=== PATIENT | male | born 1935 | race Caucasian/White ===

== ENCOUNTER → 2024-01-14 09:07 | Outpatient (REF) | payer OTHER, SELFPAY | LOC: HWRCS 09:07 | PROVIDERS: ATTENDING PHYSICIAN Internal Medicine; FAMILY PHYSICIAN Internal Medicine | DX: I35.0 Nonrheumatic aortic (valve) stenosis (principal) | CPT/HCPCS: 93306 ==

== ENCOUNTER → 2024-07-05 09:04 | Outpatient (REF) | payer OTHER, SELFPAY | LOC: HWRCS 09:04 | PROVIDERS: ATTENDING PHYSICIAN Internal Medicine; FAMILY PHYSICIAN Internal Medicine | DX: I35.0 Nonrheumatic aortic (valve) stenosis (principal); I25.10 Atherosclerotic heart disease of native coronary artery without angina pectoris; I48.0 Paroxysmal atrial fibrillation; I50.32 Chronic diastolic (congestive) heart failure; R09.89 Other specified symptoms and signs involving the circulatory and respiratory systems | CPT/HCPCS: 93306 ==

== ENCOUNTER 2024-07-18 07:34 | Day surgery (SDC) | payer OTHER, SELFPAY ==
[2024-07-18] VITALS (14 sets, daily range): BP systolic 151–205; BP diastolic 27–77; BMI 23.6
[2024-07-18 08:22] LABS: Glucose - Point of Care 136 mg/dl (70-99)
[2024-07-18] MEDS: NSS 211 ML IV (08:45)
[2024-07-18] MEDS: LOW STRENGTH ASPIRIN 81 MG PO (08:46)
--- NOTE | 2024-07-18 11:15 | ITS.CL.CATH ---
Transitional Living Specialist - Catheterization
Cardiac Catheterization
Procedure Report:
CARDIAC CATHETERIZATION REPORT
Date of Procedure: 07/18/2024
Referring: Tamir Albarado M.D.
Indication: Known coronary artery disease, critical aortic valve stenosis.
PROCEDURE:
1. Right heart catheterization.
2. Coronary angiography.
A total of 19 minutes of procedural/moderate sedation was utilized. An independent electromedical equipment repairer was present to assist with and help manage the patient's level of consciousness and physiologic status.
ACCESS:
1. 6 Belarusian right common femoral artery using a modified Seldinger technique with a micropuncture kit under ultrasound guidance. Ultrasound image obtained.
2. 5 [place]ian right common femoral vein using a modified Seldinger technique with a micropuncture kit under ultrasound guidance. Ultrasound image obtained.
CATHETERS:
1. 5 [place]ian balloon.
2. 5 Belarusian JL 4.
3. 5 [place]ian JR4.
HEMODYNAMIC DATA
Weight (kg): 70.3
AO (s/d/x, mmHg): 201/72/134
LV (s/x, mmHg): Not obtained.
PCWP (a/v/x, mmHg): /
PA (s/d/x, mmHg): 35//
RV (s/x, mmHg): 36/9
RA (a/v/x, mmHg): 13/
SVC SvO2 (%): 67.0
IVC SvO2 (%): Not obtained.
RA SvO2 (%): Not obtained.
RV SvO2 (%): Not obtained.
PA SvO2 (%): 68.6
SaO2 (%): 96.1
Hbg (g/dL): 13.0
ROBERT
CO (L/min): 4.22
CI (L/min/m2): 2.30
Thermodilution
CO (L/min): Not performed.
CI (L/min/m2): Not performed.
TPG (mmHg): 8
PVR (Carmen Units): 1.90
SVR (dynes*seconds*cm^-5): 2370
AVO2 Diff (Volume %): 4.86
AV gradient (x, mmHg): Not obtained.
AV area (cm2): Not obtained.
MV gradient (x, mmHg): Not obtained.
MV area (cm2): Not obtained.
LEFT VENTRICULOGRAPHY: Not performed.
AORTOGRAPHY: Not performed.
CORONARY ANGIOGRAPHY
Dominance: Right.
Left Main: Normal size, bifurcating vessel. There is no coronary artery disease.
LAD: Normal size vessel giving rise to 2 notable diagonals. There is a patent stent in the distal LAD. There are luminal irregularities elsewhere.
Ramus: Congenitally absent.
Circumflex: Normal size, nondominant vessel giving rise to 2 small obtuse marginals. There are minor luminal irregularities. OM 2 is the larger of the obtuse marginals but is severely tortuous.
RCA: Large size, dominant vessel with a large posterolateral branch. There is a densely calcified, 70% lesion in the proximal RCA as the vessel turns caudal. There is a 50% lesion in the distal RCA, proximal to the origin of the RPDA.
INTERVENTIONS
None.
Closure Device: Manual pressure for the right common femoral artery and vein.
Radiation dose (mGy): 308.6
DAP (cm2.Gy): 26.1350
Fluoroscopy time (minutes): 5.6
CONCLUSIONS:
1. Right dominant circulation with a patent stent in the distal LAD, a 70% lesion in the proximal RCA and a 50% lesion in the distal RCA.
2. Normal filling pressures (PCWP = 15 mmHg at 70.3 kg).
3. Severely elevated systemic vascular resistance (2370 dynes seconds centimeters to the negative fifth).
4. Critical aortic valve stenosis by echocardiography.
RECOMMENDATIONS:
1. Expectant management after cardiac catheterization via right common femoral approach.
2. Limited weight bearing for one week.
3. TAVR evaluation.
4. Aggressive secondary prevention with high-dose, high potency statin.
5. Given absence of anginal symptoms, no role for pre-TAVR PCI.
Copy to: Tamir Albarado M.D., Wilian Noble M.D.
Quan Gallo DO, FACC, FACP
[2024-07-18] MEDS: TOPROL XL 25 MG PO (12:39)
[2024-07-18] MEDS: NSS 318 IV (12:40)
--- NOTE | 2024-07-18 13:09 | CONSULT.STRU ---
Consultation
-
Date/Time Consultation Requested: 07/18/2024
Date/Time Consultation Performed: 07/18/2024
Requesting Provider: Quan Gallo
Performing Provider: LIEN Leong
Reason for Consultation: Aortic stenosis/ TAVR evaluation
Patient History
Physicians
Family Physician: Wilian Noble
Outpatient Chamber Worker: Tamir Albarado
Primary Chamber Worker: Tamir Albarado
History of Present Illness
Sylvester Lora is an 88-year-old male (recently retired self-employed HVAC Contractor/Bank Teller) with coronary artery disease status-post overlapping mid LAD stents (07/28/14; typical anginal symptoms), paroxysmal atrial fibrillation (on Eliquis),
severe aortic stenosis, mildly labile hypertension(lisinopril recently increased), hyperlipidemia, diabetes, and spinal stenosis presenting for cardiac cath today as part pf his evaluation prior to aortic valve replacement. Sylvester has been
relatively stable from a cardiac standpoint. However, he recently underwent an echocardiogram which revealed significantly progressive aortic stenosis, now severe with very elevated gradients. PG/M/63, SOUMYA: 0.85, Trace AI, Mild to moderate MR
and dilated aortic root. Sylvester remains primarily asymptomatic and continues to state that he feels well overall. He has been going to the gym daily using hand exercise machines as well as leg machines. He denies chest pain, shortness of breath,
palpitations, near-syncope/syncope, fatigue, orthopnea or progressive lower extremity swelling.
Reviewed the pathophysiology of aortic stenosis with the patient and his daughter. Explained the treatment options of SAVR and TAVR. Explained the TAVR evaluation process including follow up BMP, CT TAVR scan, CT surgery consult and Heart Team
discussion. Provided with script for BMP next week, script and appointment for CT TAVR, Consult appointment with Dr. Franks and a copy of the TAVR education booklet with contact information. Allowed for and answered questions.
Past Medical History
Past Medical History: Atrial Fib (on eliquis, ChadsVasc:6), CAD (h/o LAD stents 2014), Cancer (prostate), HTN, Hypercholesterolemia, NIDDM, Valvular Disease (Severe , trace AI, mild to moderate MR) and Other (h/o peptic ulcer disease 1998, spinal
stenosis)
Past Surgical History
Past Surgical History: PCI/Stent (2015- overlapping mid lad stents) and Other (Prostatectomy, right and left hernia repairs, cataract surgery, spinal epidurals)
Dental History
Regular dental care- Dentist at [facility]
Family History
Mother: at Age (80yo)
Father: at Age (54yo)
Social History
Alcohol: None
Drug: None
Tobacco: Non-Smoker
Personal:
Living: With Spouse
Employment: Retired (HVAC/power plant electrician)
Allergies
Allergy/AdvReac Type Severity Reaction Status Date / Time
No Known Allergies Allergy Verified 07/18/24 09:10
Home Medications
�Medication �Instructions �Recorded �Confirmed �Type
glucosamine HCl 1,500 mg tablet 1,500 mg PO DAILY Supplement 07/28/14 07/18/24 History
allopurinol 300 mg tablet 300 mg PO DAILY Gout 10/09/20 07/18/24 History
acetaminophen 325 mg tablet 650 mg PO Q6H PRN mild pain 01/01/22 07/18/24 History
(Tylenol)
aspirin 81 mg tablet,delayed 81 mg PO DAILY Blood clot 01/01/22 07/18/24 History
release prevention/tx
omega 2-xpb-rwv-fish oil 1,000 mg 1 cap PO DAILY Supplement 01/01/22 07/18/24 History
(120 mg-180 mg) capsule (Fish Oil)
therapeutic multivitamin 1 tab PO DAILY Supplement 01/01/22 07/18/24 History
apixaban 5 mg tablet (Eliquis) 5 mg PO BID Blood clot 01/04/22 07/18/24 Rx
prevention/tx #60 tabs
atorvastatin 40 mg tablet 40 mg PO QPM High cholesterol #90 01/04/22 07/18/24 Rx
tabs
metoprolol succinate 25 mg 25 mg PO DAILY Blood pressure #0 01/04/22 07/18/24 Rx
tablet,extended release 24 hr tabs
digoxin 125 mcg (0.125 mg) tablet 125 mcg PO NOON 07/18/24 07/18/24 History
empagliflozin 25 mg tablet 12.5 mg PO QPM 07/18/24 07/18/24 History
(Jardiance)
furosemide 20 mg tablet 20 mg PO Q48H Fluid 07/18/24 07/18/24 History
retention/Swelling
lisinopril 10 mg tablet 10 mg PO QPM 07/18/24 07/18/24 History
polyethylene glycol 3350 17 17 g PO DAILY 07/18/24 07/18/24 History
gram/dose oral powder
potassium chloride 20 mEq 20 meq PO DAILY 07/18/24 07/18/24 History
tablet,extended release
STS%
STS %: 4.99%
Review of Systems
-
History Source: Patient
General: Reports Weight Loss (recently lost 5lbs) and Fatigue (decreased energy since diagnosed with a-fib in 2021)
HEENT: Reports No Symptoms; Denies Visual Changes or Dysphagia
Respiratory: Reports No Symptoms; Denies SOB, GUZMAN, Cough, Asthma or PND
Cardiac: Reports Edema (mild edema bilateral ankles); Denies Chest Pain, Known Vascular Disease, Palpitations, Nausea or Vomiting
Abdomen/GI: Reports Ulcers (remote history of peptic ulcer); Denies Reflux, Nausea, Vomiting, Diarrhea or Constipation
: Reports No Symptoms; Denies Dysuria, Incontinence, Urgency or Hematuria
Musculoskeletal: Reports Other (spinal stenosis- epidurals)
Skin: Reports No Symptoms
Neurological: Reports No Symptoms; Denies CVA, TIA, Headaches, Syncope or Dizzy
Vascular: Reports No Symptoms; Denies Claudication
Physical Exam
Vital Signs
Temp 97.6 F 07/18/24 08:32
Temp route: Temporal 07/18/24 08:32
Pulse 64 07/18/24 12:45
Resp Rate 19 07/18/24 12:45
Blood pressure 179/50 07/18/24 12:39
Blood pressure extremity used: Right upper arm 07/18/24 11:39
Position: Lying 07/18/24 11:39
MAP (cuff-Elda Monitor) 72 07/18/24 12:30
SaO2 100 07/18/24 12:45
Oxygen Mode of Delivery Room air 07/18/24 12:54
Can the patient verbally communicate their pain? Yes 07/18/24 12:54
Actual Weight 70.398 kg 07/18/24 07:06
Body Mass Index (BMI) 23.6 07/18/24 07:06
Labs
07/12/2024:
H/H12.9/38.5
WBC: 11.2
Platelets: [id number]
BUN/Creat: 34/0.87
GFR: 54
Diagnostic Studies
07/05/2024 Echocardiogram:
CONCLUSIONS
Normal biventricular size and systolic function without regional wall motion
abnormality. LVEF 65-70%.
Moderate concentric left ventricular hypertrophy.
Very severe aortic stenosis (peak/mean 108/63 mmHg, SOUMYA 0.85 cm2).
Trace aortic regurgitation.
Mild to moderate mitral regurgitation.
Dilated aortic root and ascending aorta (SOV 4.0 cm, Asc Ao 3.8 cm).
Compared to prior echocardiogram in January 2024, aortic valve gradients have
increased previously peak/mean 70/46 mmHg). Aortic valve area is stable
(previously 0.9 cm2).
Indications:
Rhythm: Sinus
Portable Study: No
Technical Quality: Good
Contrast: None
BP: 118 / 76
PROCEDURE
A complete Transthoracic Echocardiogram was performed utilizing two-dimensional
evaluation with color flow and spectral Doppler analysis.
FINDINGS
Left Ventricle
Normal left ventricular chamber size. Moderate concentric left ventricular
hypertrophy. Vigorous left ventricular systolic function. Normal regional wall
motion. Estimated left ventricular ejection fraction is 65-70% by Stevenson's
method of discs. Diastolic function indeterminate.
Right Ventricle
Normal right ventricular size and function.
Left Atrium
Indexed LA volume is mildly abnormal (35-41 mL/m2).
Right Atrium
Normal right atrium.
Mitral Valve
Thickened mitral valve leaflets. Mitral annular calcification. Mild mitral
stenosis with a mean gradient of 4 mmHg. Mild to moderate mitral regurgitation.
Aortic Valve
Heavily calcified, trileaflet aortic valve. Severe aortic stenosis. The peak
gradient across the valve is 108 mmHg with a mean of 63 mmHg. Using a LVOT
diameter of 2.0 cm, the SOUMYA is 0.85 cm sq. Trace aortic regurgitation.
Tricuspid Valve
Tricuspid valve opens normally. Trace tricuspid regurgitation. Estimated
pulmonary artery pressure of 29 mmHg assuming a right atrial pressure of 3
mmHg.
Pulmonic Valve
Structurally normal pulmonic valve. Trace pulmonic regurgitation.
Pericardium\\Pleura
Normal pericardium without effusion.
Aorta
Dilated aortic root and ascending aorta. (SOV 4.0 cm, Asc Ao 3.8 cm).
Other Finding
The IVC is of normal size and demonstrates normal respiratory variation.
Interatrial septum is intact with no evidence of shunting by color flow
Doppler.
07/18/2024 Cardiac Cath:
HEMODYNAMIC DATA
Weight (kg):70.3
AO (s/d/x, mmHg): 201/72/134
LV (s/x, mmHg): Not obtained.
PCWP (a/v/x, mmHg):
PA (s/d/x, mmHg):
RV (s/x, mmHg): 36/9
RA (a/v/x, mmHg):
SVC SvO2 (%):67.0
IVC SvO2 (%):Not obtained.
RA SvO2 (%):Not obtained.
RV SvO2 (%):Not obtained.
PA SvO2 (%):68.6
SaO2 (%):96.1
Hbg (g/dL):13.0
ROBERT
CO (L/min): 4.22
CI (L/min/m2): 2.30
Thermodilution
CO (L/min):Not performed.
CI (L/min/m2):Not performed.
TPG (mmHg): 8
PVR (Carmen Units): 1.90
SVR (dynes*seconds*cm^-5): 2370
AVO2 Diff (Volume %): 4.86
AV gradient (x, mmHg):Not obtained.
AV area (cm2):Not obtained.
MV gradient (x, mmHg):Not obtained.
MV area (cm2):Not obtained.
CORONARY ANGIOGRAPHY
Dominance: Right.
Left Main: Normal size, bifurcating vessel. There is no coronary artery disease.
LAD: Normal size vessel giving rise to 2 notable diagonals. There is a patent stent in the distal LAD. There are luminal irregularities elsewhere.
Ramus:Congenitally absent.
Circumflex: Normal size, nondominant vessel giving rise to 2 small obtuse marginals. There are minor luminal irregularities. OM 2 is the larger of the obtuse marginals but is severely tortuous.
RCA: Large size, dominant vessel with a large posterolateral branch. There is a densely calcified, 70% lesion in the proximal RCA as the vessel turns caudal. There is a 50% lesion in the distal RCA, proximal to the origin of the RPDA.
CONCLUSIONS:
1. Right dominant circulation with a patent stent in the distal LAD, a 70% lesion in the proximal RCA and a 50% lesion in the distal RCA.
2. Normal filling pressures (PCWP = 15 mmHg at 70.3 kg).
3. Severely elevated systemic vascular resistance (2370 dynes seconds centimeters to the negative fifth).
4. Critical aortic valve stenosis by echocardiography.
RECOMMENDATIONS:
1. Expectant management after cardiac catheterization via right common femoral approach.
2. Limited weight bearing for one week.
3. TAVR evaluation.
4. Aggressive secondary prevention with high-dose, high potency statin.
5. Given absence of anginal symptoms, no role for pre-TAVR PCI.
Exam
General: Well Developed, Well Nourished and No Apparent Distress
HEENT: Normocephalic, Moist Mucous Membranes, PERRLA and EOMI
Neck: Trachea Midline
Respiratory: Clear; Negative Wheezes, Crackles or Rhonchi
Cardiac: S1/S2, Regular Rhythm and Murmur (Grade III/ GERRY)
GI: Soft, Non Tender, Non Distended and Normal Bowel Sounds
Rectal: Deferred by Provider
Skin: Warm and Dry
Neuro: AO x 3 and Nonfocal/Grossly Intact
Extremities: Pulses (biphasic doppler pedal pulses); Negative Lower Level Edema
Psych: Calm
Assessment / Plan
-
Severe Aortic stenosis:
����������� Continue evaluation for aortic stenosis as outpatient
����������� BMP next week ([facility])
����������� CT TAVR scan 08/02/2024 at
����������� CT surgery consult with Dr. Franks� 08/08/2024
����������� Dental Clearance ([facility])
����������� Heart team discussion at [facility]
Procedure Type:�Isolated AVR
Perioperative Outcome Estimate %
Operative Mortality 4.99%
Morbidity & Mortality 14.1%
Stroke 1.56%
Renal Failure 2.82%
Reoperation 4.85%
Prolonged Ventilation 6.57%
Deep Sternal Wound Infection 0.049%
Long Hospital Stay (>14 days) 9.65%
Short Hospital Stay (<6 days)* 27.6%
Data Reviewed
-
EKG: Report Reviewed by me (Sinus with first degree AV block)
Ice Puller: Report Reviewed by me and Discussed with Physician
Echo: Report Reviewed by me and Discussed with Physician
Labs: Labs Reviewed by me
Old Records: Reviewed (cardiology notes)
Total Time Spent with Patient (in minutes): 30
--- NOTE | 2024-07-18 13:37 | PTCARENOTE ---
Areli mancera np aware of pts bp running 173/44. toprolol ordered and given.
== END 2024-07-18 14:13 | disposition home or self-care (01) ==
LOC: CATH 07:34
PROVIDERS: ATTENDING PHYSICIAN Internal Medicine Cardiovascular Disease; FAMILY PHYSICIAN Internal Medicine; OTHER PHYSICIAN Internal Medicine
DX: I08.0 Rheumatic disorders of both mitral and aortic valves (principal); I25.10 Atherosclerotic heart disease of native coronary artery without angina pectoris; I11.9 Hypertensive heart disease without heart failure; E11.9 Type 2 diabetes mellitus without complications; Z79.84 Long term (current) use of oral hypoglycemic drugs; E78.00 Pure hypercholesterolemia, unspecified; I25.118 Atherosclerotic heart disease of native coronary artery with other forms of angina pectoris; I48.91 Unspecified atrial fibrillation; Z79.01 Long term (current) use of anticoagulants; M48.00 Spinal stenosis, site unspecified; Z87.11 Personal history of peptic ulcer disease; Z90.79 Acquired absence of other genital organ(s); Z95.5 Presence of coronary angioplasty implant and graft
CPT/HCPCS: 99152; 76937; 82962; 93456; C1894; Q9967

== ENCOUNTER → 2024-08-02 08:56 | Outpatient (REF) | payer OTHER, SELFPAY | LOC: RAD 08:56 | PROVIDERS: ATTENDING PHYSICIAN Nurse Practitioner Adult Health | DX: I35.0 Nonrheumatic aortic (valve) stenosis (principal) | CPT/HCPCS: 74174; 75572; Q9967 ==

== ENCOUNTER 2024-08-11 07:28 | Inpatient (IN) | payer OTHER, SELFPAY ==
[2024-08-09 11:49] VITALS: BMI 24.0
[2024-08-09 12:55] LABS: Urine Albumin 2+ (Neg - Trace); Urine Bilirubin Negative (Negative); Urine Character Clear (Clear); Urine Color Yellow; Urine Glucose 4+ (Negative); Urine Ketone Negative (Negative); Urine Leukocyte Negative (Negative); Urine Nitrite Negative (Negative); Urine Occult Blood Negative (Negative); Urine Specific Gravity 1.015 (<1.030); Urine Urobilinogen Negative (Neg - 1+)
[2024-08-09 12:55] LABS: % Basophils 0.4 % (0-2); % Eosinophils 1.9 % (0-6); % Immature Granulocytes 1.4 % (0-0.5); % Lymphocytes 18.4 % (20.5-51.1); % Monocytes 7.8 % (1.7-9.3); % Neutrophils 70.1 % (42.2-75.2); Absolute Eosinophils 0.2 10^3/uL (0-0.7); Absolute Immature Granulocytes 0.1 10^3/uL (0-0.05); Absolute Lymphocytes 1.4 10^3/uL (1.2-3.4); Absolute Monocytes 0.6 10^3/uL (0.1-0.6); Absolute Neutrophils 5.4 10^3/uL (1.4-6.5); Hematocrit 39.4 % (39.0-52.0); Hemoglobin 13.5 g/dL (13.0-18.0); Mean Corp Hgb Conc. 34.3 g/dL (33.0-37.0); Mean Corpuscular Hgb 32.6 pg (27.0-31.0); Mean Corpuscular Volume 95.2 fL (80.0-94.0); Mean Platelet Volume 10.8 fL (7.4-10.4); Nucleated Red Blood Cells % 0 % (-); Platelet Count 164 10^3/uL (130-400); Red Blood Cell Count 4.14 10^6/uL (4.70-6.10); White Blood Cell Count 7.7 10^3/uL (4.8-10.8)
[2024-08-09 13:05] LABS: Urine Red Blood Cell 0-2 /HPF (0-2); Urine Squamous Cell None seen /LPF (Few); Urine White Cell None Seen /HPF (0-5)
[2024-08-09 13:06] LABS: APTT 27.2 Sec (23.4-35.0); INR 1.01; PT 13.7 Sec (11.4-14.6)
[2024-08-09 13:18] LABS: ALT (SGPT) 55 U/L (0-50); AST (SGOT) 37 U/L (17-59); Albumin 4.7 g/dl (3.5-5.0); Alkaline Phosphatase 124 U/L (38-126); Blood Urea Nitrogen 30 mg/dl (9-20); Calcium 9.8 mg/dl (8.4-10.2); Carbon Dioxide 25 mmol/L (22-30); Chloride 103 mmol/L (98-107); Direct Bilirubin 0.2 mg/dl (0.0-0.4); Estimated Creatinine Clearance 61 ml/min; Glucose 144 mg/dl (70-99); Potassium 4.8 mmol/L (3.5-5.1); Sodium 138 mmol/L (135-145); Total Bilirubin 1.3 mg/dl (0.2-1.3); Total Protein 6.6 g/dl (6.3-8.2); eGFR > 60.00
[2024-08-09 13:23] LABS: NT-proBNP 410 pg/ml
--- NOTE | 2024-08-09 14:10 | CM ---
Met with and Mrs. Lora in [facility]'s. He states prior to admission he resides with his spouse in a ground floor apartment at [facility]. He states he has been there for two years. He states prior to admission he ambulates in
the apartment without an assistive device, uses a single point cane for short distances in the community and uses a scooter for long distances in the community. He states he has a single point cane and scooter at home. He states he has a
prescription plan and uses the [facility] for his Jardiance and Eliquis. His spouse states she will be home to assist in his care if needed. Medical work-up in progress. The discharge plan is to return home with his spouse and a home visit by the
Transitional Care Nurse when medically stable.
We reviewed pre-op and post-op routines. We reviewed the shower instructions. He has the soap and written instructions. He already has the TAVR Educational Booklet. We also reviewed restrictions including driving and lifting restrictions. We
discussed a home visit by the Transitional Care Nurse. He is agreeable to a home visit. The plan is for TAVR on , 08/11/24.
[2024-08-09 14:15] LABS: Glycohemoglobin (HgbA1c) 6.8 % (4.0-5.6)
[2024-08-11] VITALS (22 sets, daily range): BP systolic 117–174; BP diastolic 32–74; BMI 22.6
--- NOTE | 2024-08-11 08:46 | CM ---
Reviewed chart. Mr. Lora is in the operating room today. Prior to admission he resides with his spouse in a ground floor apartment at [facility]. He has been there two years. Prior to admission he ambulates with out an
assisted device in the apartment, uses a single point cane for short distances and uses a scooter for long distances. He has a single point cane and scooter at home. He states he has a prescription plan and uses the [employer] [facility] for his Jardiance
and Eliquis. His spouse will be home to assist in his care if needed. Medical work-up in progress. The discharge plan is to return home with his spouse and a home visit by the Transitional Care Nurse when medically stable.
[2024-08-11 08:53] LABS: Glucose - Point of Care 136 mg/dl (70-99)
[2024-08-11] MEDS: ANCEF 10 IV (10:16)
[2024-08-11 11:24] LABS: ACT-LR - POC 229 Seconds (116-155)
[2024-08-11 11:41] LABS: ACT-LR - POC 385 Seconds (116-155)
--- NOTE | 2024-08-11 12:04 | W.CVOR.SURPR ---
CVOR Surgeon Immed Pre Op
-
I have examined this patient prior to performance of the scheduled procedure.
The patient's condition is unchanged from the time of the dictated/written History and
Physical and the patient is able to undergo the scheduled procedure.
TAVR
--- NOTE | 2024-08-11 12:05 | W.PN.CT.SURG ---
CT Surgery Operative Note
-
OPERATIVE REPORT
Preoperative Diagnosis: Severe aortic valve stenosis, symptomatic
Postoperative Diagnosis: Same
Procedure(s) Performed: Left trans femoral TAVR with a 34 mm mm Medtronic Evolut FX plus device with Preop BAV
Date of Procedure: 08/11/24
Comorbidities:
1. Severe symptomatic aortic stenosis
2. Severe mitral valve annular calcification
3. Prostate cancer
4. Hyperlipidemia
5. Hypertension
6. Diabetes
7. Atrial fibrillation
8. Severe peripheral vascular disease
Cardiac Surgeon: Brandon Franks MD, MS
Pumper Gager Apprentice: Jorge Blanco MD
Anesthesia: Conscious Sedation, Local
EBL: 100cc
Products: none
Implant: Medtronic Evolut 34mm FX +, SN: [id number]
Indication(s) for Procedures: 89-year-old male with severe aortic stenosis. Symptomatic. CT-TAVR protocol revealed acceptable anatomy for a self-expanding TAVR valve.
Start time: 1040hrs
Deployment time: 1128hrs
End time: 1146hrs
Radiation Dose (mGy): 552.96
DAP (cm2.Gy): 49.5333
Fluoroscopy time (minutes): 18.0
Contrast volume (ml): 91
TAVR gradient (mmHg): 6mmHg
Heparin Dose: 7000units
Protamine Dose: 50mg
Final Valve Positioninmm:4mm
Recaptures x 1
LVEPD: 28mmHg.
Findings: Preoperative LVEF was 60% and was 75% following TAVR without inotropic support. Function was overall normal without regional wall motion abnormalities or dyskinesia. The aortic valve was well seated with only trace PVL. The patient did not
require pacing postoperative but was in a complete heart block that slowly improved to a first degree AV block. We opted to the leave the femoral venous sheath in place at the end of the case. There was successful placement of 34mmm Evolut FX+ TAVR
valve without acute complications. Of note, we opted to place a 22F Dryseal [place] Sheath as there was a significant effort in passing the 18F Cook Sheath. A pre-op BAV was performed. An LVEDP was measured after accessing the LV and found to be 28
mmHg.
Access:
1. Device -left common femoral artery, perclose x 2 + 8 German Angio-Seal
2. Pigtail -right common femoral artery + 6Fr angioseal
3. Transvenous Pacer -right common femoral vein
Description of Procedure: The patient was taken to the wood and wood products labourer. Their identity and procedure to be performed were verified and they were positioned supine on the wood and wood products labourer table. Induction via conscious sedation with local analgesia. The patient was
then prepped and draped from chin to thigh in a sterile fashion. A preoperative time-out was performed with all members of the team present. Using fluoroscopy, bilateral femoral heads and their margins were identified. Arterial and venous access
were done with a micropuncture needle with Seldinger technique. Test pacing revealed capture with excellent threshold. Angiography confirmed proper puncture site and femoral artery integrity. Two Per-Close devices were used on the TAVR side. An AL1
catheter was used to deliver a extrastiff wire and insertion of the working sheath. There was a significant amount of effort required in order to pass the working sheath up past the area of narrowing at the aortic bifurcation. At this point we
opted to use a 22 German dry seal [place] hydrophilic sheath in order to perform both the BAV and passing of the device inline sheath. The device site was serially dilated with dilators and passing of the 22 German dry seal sheath was done under
fluoroscopy guidance. An AL1 catheter with a straight stiff wire was used to access the LV. The valve was prepped and mounted on to the device carrier. An ACT of >250 was achieved. We verified x 3 under fluoroscopy that the valve was mounted
correctly with paddles in appropriate position. At this point the balloon valvuloplasty was performed under rapid pacing. We than set our parameters to achieve a co-planar view with the pigtail positioned in the NCC. We advanced the device with
it's in-line sheath into the descending thoracic aorta and over the arch into the root and positioned across the aortic valve. Contrast fluoroscopy was used to visualize the prosthesis across the valve. We performed a quick pre-deployment time out.
We verified positioning based on the pigtail and gentle contrast puffs. The valve was slowly deployed to just before annular contact. We paused here and verified positioning in our cusp overlap view. At this point the valve had embolized into the
aorta and seemed a bit high and so we recaptured the valve and again attempted to deploy a slightly deeper under rapid pacing at 140 bpm. We then rotated TAJIK and removed any parallax from the valve. Contrast was used to verify the LCC was
appropriate in height. It was and so we slowly continued to deploy the valve until the crowns and paddles were free from the device. At this point the valve was functioning and pacing was stopped. We slowly continued to deploy the valve until the
crowns and paddles were free from the device. The deployment device was withdrawn into the descending thoracic aorta while maintaining wire access across the valve. A transthoracic echocardiogram was performed. The pigtail was re-positioned at the
level of the crown of the valve and angiography revealed excellent placement and seating of the valve at the annulus. The device was removed from the groin as we cinched down the perclose devices while maintaining wire access additional Angio-Seal
was placed for hemostasis. There was acceptable hemostasis thereafter. The pigtail was repositioned into the descending/abdominal and runoff aortogram was performed. There was no significant stenosis or dissection of the bilateral iliofemoral
systems with excellent runoff to the SFAs. All wires were removed and perclose snugged and cut. There was acceptable hemostasis of bilateral groins.
All instrument, sponge, and needle counts were confirmed to be correct x 2 at the end of the operation. The patient was transferred to the cardiac intensive care unit in stable condition.
Joann, Dr. Brandon Franks, was present, scrubbed for, and performed all critical elements of this procedure.
Brandon Franks MD, MS
Cardiothoracic Surgeon
[facility]
This operative dictation was created using the [employer] dictation system. Please excuse any grammatical, typographical, or 'sound alike' errors
[2024-08-11] MEDS: NSS 500 IV (12:25)
[2024-08-11 12:34] LABS: Glucose - Point of Care 166 mg/dl (70-99)
--- NOTE | 2024-08-11 12:58 | ITS.CL.PN ---
Manufacturing Plant Technician - Procedure Note
Procedure
Procedure Note:
TRANSCATHETER AORTIC VALVE REPLACEMENT REPORT
Date of Procedure: 08/11/2024
Referring: Dr. Tamir Albarado MD
Indication: symptomatic severe to critical aortic stenosis
Operators: Jesus Blanco MD, PhD (interventional cardiology); Dr. Brandon Franks MD (CT surgery)
Anesthesia: conscious sedation provided by the anesthesia staff
PROCEDURE: transfemoral, transcatheter aortic valve replacement with an Evolut Fx Plus 34 mm valve
ACCESS:
1. 6F right femoral vein (closure: manual hemostasis)
2. 6F right common femoral artery (closure: Angioseal)
3. 22F left common femoral artery (closure: Perclose x2; 8F Angioseal x1)
HEMODYNAMIC DATA
LV 190/12 (EDP 28) mmHg
PROCEDURE NARRATIVE:
The patient was prepped and draped in standard sterile fashion. Conscious sedation was provided by the anesthesia staff. 6F right femoral vein and right common femoral artery access was obtained with ultrasound guidance using micropuncture technique
with verification of appropriate arteriotomy location via hand injection angiography. A temporary venous pacing wire was advanced via the right femoral vein to the right ventricle under fluoroscopic guidance with appropriate capture verified. A 5F
pigtail catheter was advanced via the right common femoral artery and seated in the non-coronary cusp. Angiography was performed to verify the cusp overlap angle.
8F left common femoral artery access was obtained with ultrasound guidance using micropuncture technique with verification of appropriate arteriotomy location via hand injection angiography. The arteriotomy was preclosed with two Perclose sutures
followed by replacement of the 8F sheath. Using an AL1 catheter, a Lunderquist wire was placed in the descending thoracic aorta. A 14F dilator was advanced over the Lunderquist wire followed by placement of a 18F Cook sheath with some difficulty
given the calcified and tortuous anatomy. Vessel caliber was not the problem so much as the tortuosity and vessel stiffness due to calcification. Thus, the decision was made to place a 22F Climax DrySeal sheath which was advanced over the Lunderquist
without complication. The AL1 catheter was re-advanced through the sheath to the level of the ascending aorta. The Lunderquist wire was exchanged for a soft tipped straight wire which was used to cross the aortic valve and deposit the AL1 in the LV
apex. A J-wire was used to exchange the AL1 for a pigtail catheter in the LV and LVEDP was measured. The Lunderquist wire was advanced through the pigtail catheter and seated in the LV apex. ACT was checked and confirmed to be >300 seconds.
A 23 mm True valvuloplasty balloon was advanced over the Lunderquist wire and into the aortic annulus. Valvuloplasty was performed under rapid pacing with good balloon expansion. The valvuloplasty balloon was removed.
The valve was inspected under fluoroscopy to confirm lack of infolding above the 4th node. Through the Climax sheath, the in-line sheath was advanced over the Lunderquist wire into the descending aorta. The valve was then advanced over the aortic arch
and into the left ventricle. In the cusp overlap view, the valve was slowly deployed to the point of flowering but popped out. A full recapture was performed after which the valve was redeployed with a more deep position and forward pressure. The
patient was paced to adequately lower pulse pressure as the valve was deployed through the rumble strips to 80%. Injection demonstrated a non-coronary cusp implant depth of 5 mm. Angiography performed in an ICELANDIC projection demonstrated left coronary
cusp implant depth of 5 mm. The decision was made to proceed with full deployment. The Lunderquist wire was partially withdrawn to lift the nose cone of the valve delivery device. In the ICELANDIC view, the delivery handle was slowly rotated until both
paddles were released from the superior aspect of the valve. The delivery device was withdrawn to the descending aorta and re-assembled. The patient was resuscitated by anesthesia with recovery of adequate blood pressure. Telemetry demonstrating an
unclear rhythm, with frequent ectopy and possibly underlying complete heart block versus high degree heart block which improved to sinus with first degree AV block. Aortography demonstrated good valve positioning, adequate coronary filling, and
trace aortic valve insufficiency. Echocardiography confirmed trace aortic insufficiency. Mean valve gradient was 6 mmHg. The patient was noted to have cavity obliteration on echo, thus despite the high LV filling pressure prior to valve replacement,
post-valve replacement physiology was not consistent with elevated LV filling pressures and fluids were administered to improve LV filling.
The valve deployment system and Climax sheath were removed, and hemostasis obtained with the two Perclose sutures as well as an additional 8F Angioseal. Protamine 50 mg was given. Aortoiliac angiography demonstrated no evidence of iliofemoral
dissection/perforation and good runoff below the common femoral artery bilaterally. The pacemaker and the pigtail catheter were removed. The right femoral artery sheath was removed using a 6F Angioseal. The right femoral venous sheath was removed
with manual pressure.
RADIATION: dose 552.96 mGy; DAP 49.5333 Gy*cm2; fluoroscopy time 18 min
CONCLUSIONS
1. successful placement of a Evolut Fx Plus 34 mm transcatheter aortic valve via left transfemoral approach with no acute complications
2. acute on chronic systolic heart failure with elevated filling pressures (LVEDP = 28)
Copy to: Dr. Tamir Albarado MD (community living specialist); Dr. Wilian Noble MD (PCP)
Signed: Jesus Blanco MD, PhD
[2024-08-11] MEDS: NOVOLOG FLEXPEN-MODERATE RESISTANCE 1 UNITS SC ×2 (13:11→18:20)
[2024-08-11] MEDS: ANCEF IV (13:44)
--- NOTE | 2024-08-11 14:48 | W.PN.UPDATE ---
Update Note
Progress Note Update
Reviewed Mr. Lora with the heart team in the preTAVR SDM meeting and confirmed a 34mm Evolut FX+. He will resume Eliquis and Jardiance post TAVR. LVEDP 28mmHg. #34mm Evolut Fx+ (serial# [id number]) successfully implanted via left transfemoral
access., Post implant MG 6mmHg.
[2024-08-11 17:05] LABS: Glucose - Point of Care 151 mg/dl (70-99)
[2024-08-11] MEDS: LIPITOR 40 MG PO (18:21)
[2024-08-11] MEDS: ANCEF 5 IV (18:21)
[2024-08-11] MEDS: FARXIGA 10 MG PO (18:21)
[2024-08-11] MEDS: ZESTRIL 10 MG PO (18:21)
--- NOTE | 2024-08-11 21:25 | PTCARENOTE ---
Received pt at change of shift resting in bed. AAOx3, neuro intact. NSR with 1 degree block in the 80s on the monitor. Blood pressure stable. Right and left groin sites clean, dry, and intact. Trace edema to b/l lower extremities with positive
doppler pedal pulses. Ambulated pt to bathroom with cane. Tolerated well. Denies any lightheadedness or pain. Pt back in bed and made comfortable. Call gonzalez within reach.
[2024-08-11 21:59] LABS: Glucose - Point of Care 218 mg/dl (70-99)
--- NOTE | 2024-08-11 23:50 | PTCARENOTE ---
Removed old pacer pads off of pt. Posterior pad covered with tegaderm. When removed, tegaderm pulled skin resulting in a skin tear. Pt denies any pain. Left open to air. Emison, no bleeding.
Pt resting comfortably in bed. No changes. b/l groin sites intact. Call gonzalez within reach.
[2024-08-12] VITALS (7 sets, daily range): BP systolic 116–165; BP diastolic 45–77; PULSE 77; O2SAT 97; BMI 23.1
--- NOTE | 2024-08-12 02:45 | W.PN.CT ---
Today's Communication / Plan
-
- no acute events overnight
- Echo, EKG today
- Digoxin and BBl on hold, will d/w cardiology
- Resume home meds
- ASA and Eliquis
- discharge planning
Assessment / Plan
-
s/p Left trans femoral TAVR with a 34 mm mm Medtronic Evolut FX plus device with Preop BAV POD#1
- Severe symptomatic aortic stenosis
- Severe mitral valve annular calcification
- Prostate cancer
- Hyperlipidemia
- Hypertension
- Diabetes
- Atrial fibrillation
- Severe peripheral vascular disease
- CHB during procedure, now with RBBB
Subjective
Procedure
s/p Left trans femoral TAVR with a 34 mm mm Medtronic Evolut FX plus device with Preop BAV on 08/11/[address] Franks
-
Date of Service: August 12, 2024
Objective Data
-
Lab Results
08/12/24 03:33
08/12/24 03:33
PT 13.7 Sec (11.4-14.6) 08/09/24 12:12
INR 1.01 08/09/24 12:12
APTT 27.2 Sec (23.4-35.0) 08/09/24 12:12
Vital Signs
Vital Signs
Temp Pulse Resp BP Pulse Ox
98.2 F 81 16 117/54 96
08/11/24 23:19 08/11/24 23:11 08/11/24 23:19 08/11/24 23:11 08/11/24 23:39
CT Intake/Output/Weight
08/11/24 08/11/24 08/12/24
06:59 18:59 06:59
Intake Total 1800 / 2040 240 / 2040
Output Total 200 / 650 450 / 650
Balance 1600 / 1390 -210 / 1390
SaO2: 96
Physical Exam
-
General: AOx3
Cardiovascular: Regular rate & rhythm
Respiratory: Clear
Incision: Dressing Intact
Extremities: No Edema
[2024-08-12 03:59] LABS: Hematocrit 35.9 % (39.0-52.0); Hemoglobin 12.6 g/dL (13.0-18.0); Mean Corp Hgb Conc. 35.1 g/dL (33.0-37.0); Mean Corpuscular Hgb 32.6 pg (27.0-31.0); Platelet Count 181 10^3/uL (130-400); Red Blood Cell Count 3.86 10^6/uL (4.70-6.10); Red Cell Dist. Width 15.1 % (11.5-14.5); White Blood Cell Count 12.6 10^3/uL (4.8-10.8)
[2024-08-12 04:35] LABS: Blood Urea Nitrogen 28 mg/dl (9-20); Calcium 9.1 mg/dl (8.4-10.2); Carbon Dioxide 23 mmol/L (22-30); Chloride 105 mmol/L (98-107); Estimated Creatinine Clearance 54 ml/min; Glucose 134 mg/dl (70-99); Potassium 4.7 mmol/L (3.5-5.1); Sodium 137 mmol/L (135-145); eGFR > 60.00
--- NOTE | 2024-08-12 07:49 | W.PN.ANS.POP ---
Anesthesia Post Operative
- Anesthesia Post Op Note
Vital Signs Stable-See Nursing Note: Yes
Airway Patent: Yes
Adequate Pain Control: Yes
Change in Mental Status: No
Current Postoperative Nausea & Vomiting: No
Anesthesia Complications: No
General Anesthetic Recall: No
Unplanned Admission: No
Post Op Hydration Adequate: Yes
[2024-08-12 07:56] LABS: Glucose - Point of Care 119 mg/dl (70-99)
[2024-08-12] MEDS: FLORASTOR 250 MG PO (08:08)
[2024-08-12] MEDS: ELIQUIS 5 MG PO (08:08)
[2024-08-12] MEDS: KCL 20 MEQ PO (08:08)
[2024-08-12] MEDS: NOVOLOG FLEXPEN-MODERATE RESISTANCE SC ×2 (08:08→16:05)
[2024-08-12] MEDS: ASPIR LOW (ENTERIC COATED) 81 MG PO (08:09)
[2024-08-12] MEDS: LASIX 20 MG PO (08:09)
[2024-08-12] MEDS: ZYLOPRIM 300 MG PO (08:09)
--- NOTE | 2024-08-12 08:24 | W.DCSUMMARY ---
Discharge Summary
Discharge Data
Date of Admission: 08/11/24
Date of Discharge: 08/12/24
-
Pending Results: No
Hospital Course
Primary care physician: Wilian Noble
Outpatient embedded processor: Tamir Albarado
Inpatient consultants: [facility] Cardiology
Procedures:
1. Left trans femoral TAVR #34 mm mm Medtronic Evolut FX plus device with Preop BAV
Primary Diagnosis:
1. severe aortic stenosis
Secondary Diagnoses:
1. Severe mitral valve annular calcification
2. Prostate cancer s/p prostatectomy (2010)
3. Hyperlipidemia
4. Hypertension
5. Diabetes (A1C 6.8)
6. Permanent atrial fibrillation
7. Severe peripheral vascular disease
8. Postop nonsustained VT
HPI: 89-year-old male electively admitted on 08/11/24 for TAVR.
Hospital course: Patient underwent left transfemoral TAVR with preop balloon valvuloplasty by Drs. Brandon Franks and Jorge Alegre. Patient had a new right bundle branch block on postoperative ECG. On postoperative day 1, morning ECG reported sinus
rhythm with continued right bundle branch block. A heart rhythm monitor was ordered on discharge. Patient had a 15 beat episode of NSVT early childhood services coordinator POD #1. Telemetry reviewed by cardiology. Digoxin was stopped on discharge and patient will
continue on home beta pawan per cardiology. Bilateral groin sites intact without hematoma or bleeding. Predischarge TTE reported an EF of 70-25% with AV gradients, 19/11 mmHg. Mild AI and MR, with trace TR. Patient was evaluated by cardiology
due to stable for discharge to home.
Home medication changes:
Stop:
Digoxin
Discharge Plan
-
Patient Disposition: Home (Routine Discharge)
Discharge Diagnosis/Procedures: TF-TAVR
Condition: Good
Diet: Low Cholesterol and 2 Gram Sodium
Activity: As tolerated
Driving Restrictions: No driving for 1 week
Bathing Restrictions: OK to Shower
Others Tests: 30 Day Follow Up Echocardiogram: 09/12/2024 at 11:20am at [facility]
Other Services: Cardiac Rehab
Wound Care: Please do not apply lotions, creams or powders to groin areas. Please monitor for increased pain, redness, swelling or drainage. Notify your doctor if any occur.
Specialty Instructions: Weigh Daily- Call MD for wt gain/loss 3 lbs overnight/5 lbs in 1 week
Referrals:
CT Transitional Care Nurse [Outside] - in one to two days
(
The Cardiothoracic Transitional Care Nurse will call you to set up a visit in 1-2 days.)
[facility]. Cardiac Rehab [Outside]
(Cardiac Rehab Orientation appointment is on Thursday09/15/2024@ 11:30AM.
The Cardiac Rehab gym is located on the first floor of the [facility].)
Jayne Moran CRNP [Specified Professional Personl] - 09/14/24 11:20 am
Wilian Noble MD [Family Provider] - (Please make an appointment in four to six weeks. )
Prescriptions:
Continued
glucosamine HCl 1,500 MG tablet
1,500 mg PO DAILY
allopurinol 300 MG tablet
300 mg PO DAILY
aspirin 81 mg Tablet,Delayed Release (Dr/Ec)
81 mg PO DAILY
omega 4-wfr-vbx-fish oil [Fish Oil] 1,000 mg (120 mg-180 mg) Capsule
1 cap PO DAILY
therapeutic multivitamin Tablet
1 tab PO DAILY
atorvastatin 40 MG tablet
40 mg PO QPM Qty: 90 3RF
metoprolol succinate 25 MG tablet extended release 24 hr
25 mg PO DAILY Qty: 0 0RF
furosemide 20 mg tablet
20 mg PO Q48H
Jardiance 25 mg Tablet
12.5 mg PO QPM
Eliquis 5 mg tablet
5 mg PO BID
lisinopril 10 mg Tablet
10 mg PO QPM Qty: 0 0RF
potassium chloride 20 mEq Tablet Extended Release
20 meq PO DAILY Qty: 0 0RF
polyethylene glycol 3350 17 gram/dose Powder
17 g PO DAILY Qty: 0 0RF
acetaminophen 650 mg Tablet Extended Release
650 mg PO Q6H Qty: 0 0RF
ascorbic acid (vitamin C) [Vitamin C] 1,000 mg Tablet
1 g PO DAILY Qty: 0 0RF
coenzyme Q10 [Co Q-10] 100 mg Capsule
100 mg PO DAILY Qty: 0 0RF
Saccharomyces boulardii [Probiotic (S.boulardii)] 250 mg Capsule
250 mg PO DAILY Qty: 0 0RF
zinc glycinate 30 mg Capsule
30 mg PO DAILY Qty: 0 0RF
Discontinued
digoxin 125 mcg (0.125 mg) Tablet
125 mcg PO NOON
Care Plan Goals
Care Plan Goals:
Problem: Readiness for enhanced knowledge related to diagnosis and treatment plan
Goal: Understand your diagnosis and treatment plan needs, including medications if applicable.
Instructions: Know your diagnosis, underlying causes and treatment plan options, including medications if applicable. Consult with your health care team to learn about your diagnosis and treatment plan, including medications if applicable.
Discharge Date and Time
Print Language: ICELANDIC
--- NOTE | 2024-08-12 10:13 | W.PN.CD ---
Today's Communication / Plan
-
echo
stop digoxin
resume ToproL XL 25mg daily
no amiodarone
d/c with [facility]
Impression / Plan
-
89 yo male with severe , CAD s/p LAD stent 2014, paroxysmal A fib on eliquis is admitted following TAVR.
s/p TAVR
-plan will be ASA 81mg and eliquis 5mg bid for CAD and TAVR (outpatient regimen)
-echo
Rhythm
-h/o paroxysmal A fib: no A fib here
-1st degree AVB at baseline
-brief high degree heart block during TAVR, then sinus, 1st degree AVB, and new RBBB
-then 15 beats NSVT
-no prior h/o dizziness/syncope
-EF is normal
-patent LAD stent on cath
-discussed with EP
-will stop digoxin
-resume ToproL XL 25mg daily
-no amiodarone
-d/c with [facility]
Physical Exam
Vital Signs/Labs
Vital Signs
Temp Pulse Resp BP Pulse Ox
98.4 F 77 20 116/77 99
08/12/24 08:15 08/12/24 08:15 08/12/24 08:15 08/12/24 08:15 08/12/24 08:15
08/11/24 08/12/24 08/13/24
06:59 06:59 06:59
Actual Weight 66.9 kg
08/12/24 03:33
08/12/24 03:33
PT 13.7 Sec (11.4-14.6) 08/09/24 12:12
INR 1.01 08/09/24 12:12
APTT 27.2 Sec (23.4-35.0) 08/09/24 12:12
08/09/24
12:12
Qbc-R-Gwtropqculv Pept 410
Physical Exam
Constitutional: No acute distress and Comfortable
EENT: Moist mucous membranes
Cardiovascular: Rhythm & rate is regular, Pedal edema is absent, JVD pressure is normal and Systolic murmur absent
Respiratory: Respiratory effort normal and Lungs clear to auscul.
Neuro/Psych: AO x 3
Data Reviewed
-
Date of Service: August 12, 2024
EKG: Other (Tele: NSR, 15 beats NSVT)
Labs: Labs Reviewed by me
--- NOTE | 2024-08-12 11:01 | CM ---
Chart reviewed. Patient is independent of ADLS, lives with his in ground floor apartment at [facility], ambulates with a SPC and also has a scooter for long distances. Plan is for the patient to return home with CT Transitional RN. CM to
follow
[2024-08-12 11:38] LABS: Glucose - Point of Care 221 mg/dl (70-99)
[2024-08-12] MEDS: NOVOLOG FLEXPEN-MODERATE RESISTANCE 3 UNITS SC (11:40)
--- NOTE | 2024-08-12 14:42 | W.PN.UPDATE ---
Update Note
Progress Note Update
Patient given Rhythm Star monitor to apply at discharge. He is to wear for 14 days. Reviewed how to place it, charge it, report symptoms and return the monitor. Allowed for and answered questions.
== END 2024-08-12 17:15 | disposition home or self-care (01) | DRG 266 ==
LOC: IVU 07:28
PROVIDERS: Physician Assistant Medical; ADMITTING PHYSICIAN Thoracic Surgery (Cardiothoracic Vascular Surgery); CONSULT PHYSICIAN Student in an Organized Health Care Education/Training Program; FAMILY PHYSICIAN Internal Medicine; OTHER PHYSICIAN Internal Medicine
PROC: 02RF38Z Replacement of Aortic Valve with Zooplastic Tissue, Percutaneous Approach (ICD-10-PCS; 2024-08-11)
DX: I35.0 Nonrheumatic aortic (valve) stenosis (principal); Z00.6 Encounter for examination for normal comparison and control in clinical research program; I50.23 Acute on chronic systolic (congestive) heart failure; I44.2 Atrioventricular block, complete; I48.21 Permanent atrial fibrillation; I47.20 Ventricular tachycardia, unspecified; I34.81 Nonrheumatic mitral (valve) annulus calcification; E78.5 Hyperlipidemia, unspecified; I11.0 Hypertensive heart disease with heart failure; E11.51 Type 2 diabetes mellitus with diabetic peripheral angiopathy without gangrene; Z79.01 Long term (current) use of anticoagulants; Z79.82 Long term (current) use of aspirin; Z79.899 Other long term (current) drug therapy; Z85.46 Personal history of malignant neoplasm of prostate; Z95.5 Presence of coronary angioplasty implant and graft
CPT/HCPCS: 93308; 33361; 36415; 71045; 71046; 80048; 80053; 81003; 81015; 82248; 82962; 83036; 83880; 85025; 85027; 85347; 85610; 85730; 86850; 86900; 86901; 87070; 93005; 93321; 93325; C1760; C1769; C1894; Q9967

== ENCOUNTER → 2024-09-12 10:53 | Outpatient (REF) | payer OTHER, SELFPAY | LOC: RCS 10:53 | PROVIDERS: ATTENDING PHYSICIAN Internal Medicine; FAMILY PHYSICIAN Internal Medicine | DX: I35.0 Nonrheumatic aortic (valve) stenosis (principal) | CPT/HCPCS: 93306 ==

== ENCOUNTER 2024-09-15 15:27 | Outpatient (RCR) | payer OTHER, SELFPAY ==
[2024-09-15 12:37] LABS: Glucose - Point of Care 138 mg/dl (70-99)
== END 2024-09-15 23:59 | disposition home or self-care (01) ==
LOC: CRHB 15:27
PROVIDERS: ATTENDING PHYSICIAN Internal Medicine
DX: I35.0 Nonrheumatic aortic (valve) stenosis (principal); Z95.4 Presence of other heart-valve replacement; E11.9 Type 2 diabetes mellitus without complications
CPT/HCPCS: 82962; G0422; G0423

== ENCOUNTER → 2024-11-16 08:25 | Outpatient (REF) | payer OTHER, SELFPAY | LOC: HWRAD 08:25 | PROVIDERS: ATTENDING PHYSICIAN Internal Medicine | DX: R91.1 Solitary pulmonary nodule (principal) | CPT/HCPCS: 71250 ==